=== PATIENT | male | born 1990 | race American Indian/Alaskan Native ===

== ENCOUNTER 2019-09-01 21:18 | Emergency (ER) | payer BC ==
[2019-09-01 21:25] VITALS: BP 145/93
[2019-09-01] MEDS ORDERED: IBUPROFEN 800 MG TAB PO ONE (22:38)
[2019-09-01] MEDS ORDERED: LIDOCAINE-MPF (1%) 10 MG/1 ML VIAL 5 ML INFILTRATI ONE (22:38)
[2019-09-01] MEDS ORDERED: DIPHtheria,PERTUSSIS(ACELL),TETANUS VACCINE/PF 0.5 ML VIAL IM ONE (22:39)
--- NOTE | 2019-09-01 23:29 | Emergency Department Report ---
- General Chief Complaint: Wound/Laceration Stated Complaint: LACERATION TO RIGHT MIDDLE FINGER Source: patient Mode of arrival: Ambulatory Limitations: No Limitations - History of Present Illness Initial Comments: Patient is a 29-year-old white male with no past medical history presents to the ED with complaint of acute onset persistent painful right middle finger bleeding laceration on the palmar side after he accidentally got cut by a piece of a toy that he was trying to fix for his child about 1 hour ago. Patient states that he is not up-to-date with his tetanus vaccinations. Patient states that the bleeding is well controlled but the pain is worsened. Patient however admits that he is still able to perform active range of motion of the right middle finger. Patient denies numbness and tingling or weakness of right hand or right middle finger, nausea, vomiting, fall, dizziness or syncope. -: Sudden, hour(s) (1) Location: other (right middle finger) Extremity Location: Right: Hand (right middle finger laceration) Place: home Patient Tetanus UTD: No (given during this visit) Context: accidental Associated Symptoms: pain. denies: loss of feeling/numbness, suspect foreign body present, unable to move injured part, weakness followed by dizziness, nausea/vomiting, fever - Related Data Previous Rx's Medication Instructions Recorded Last Taken Type Ibuprofen [Motrin] 600 mg PO Q8H PRN #20 tablet 09/01/19 Unknown Rx cephALEXin [Keflex] 500 mg PO Q8HR #30 cap 09/01/19 Unknown Rx ED Review of Systems ROS: Stated complaint: LACERATION TO RIGHT MIDDLE FINGER Other details as noted in HPI Constitutional: denies: chills, fever Eyes: denies: eye pain, eye discharge, vision change ENT: denies: ear pain, throat pain Respiratory: denies: cough, shortness of breath, wheezing Cardiovascular: denies: chest pain, palpitations Endocrine: no symptoms reported Gastrointestinal: denies: abdominal pain, nausea, diarrhea Genitourinary: denies: urgency, dysuria Musculoskeletal: arthralgia (Painful bleeding right middle finger laceration on the palmar side). denies: back pain, joint swelling Skin: other (Bleeding painful right middle finger laceration on the palmar side). denies: rash, lesions Neurological: denies: headache, weakness, paresthesias Psychiatric: denies: anxiety, depression Hematological/Lymphatic: denies: easy bleeding, easy bruising ED Past Medical Hx - Past Medical History Previous Medical History?: Yes Additional medical history: "resp issue" - Surgical History Past Surgical History?: Yes Additional Surgical History: tonsil. wisdom teeth - Social History Smoking Status: Never Smoker Substance Use Type: Alcohol - Medications Home Medications: Home Medications Medication Instructions Recorded Confirmed Last Taken Type Ibuprofen [Motrin] 600 mg PO Q8H PRN #20 tablet 09/01/19 Unknown Rx cephALEXin [Keflex] 500 mg PO Q8HR #30 cap 09/01/19 Unknown Rx ED Physical Exam - General Limitations: No Limitations General appearance: alert, in no apparent distress - Head Head exam: Present: atraumatic, normocephalic, normal inspection - Eye Eye exam: Present: normal appearance, PERRL, EOMI Pupils: Present: normal accommodation - ENT ENT exam: Present: normal exam, normal orophraynx, mucous membranes moist, TM's normal bilaterally, normal external ear exam - Neck Neck exam: Present: normal inspection, full ROM. Absent: tenderness - Respiratory Respiratory exam: Present: normal lung sounds bilaterally. Absent: respiratory distress, wheezes, rales, rhonchi, chest wall tenderness, accessory muscle use, decreased breath sounds, prolonged expiratory - Cardiovascular Cardiovascular Exam: Present: regular rate, normal rhythm, normal heart sounds. Absent: systolic murmur, diastolic murmur, rubs, gallop - GI/Abdominal GI/Abdominal exam: Present: soft, normal bowel sounds. Absent: tenderness, guarding, rebound, hyperactive bowel sounds, hypoactive bowel sounds, organomegaly - Extremities Exam Extremities exam: Present: normal inspection, full ROM, tenderness (Palpable right middle finger tenderness due to a bleeding 3 cm laceration on proximal right middle finger on palmar side), normal capillary refill. Absent: pedal edema, joint swelling - Back Exam Back exam: Present: normal inspection, full ROM. Absent: tenderness, CVA tenderness (L), muscle spasm, paraspinal tenderness - Neurological Exam Neurological exam: Present: alert, oriented X3, CN II-XII intact, normal gait, reflexes normal - Psychiatric Psychiatric exam: Present: normal affect, normal mood - Skin Skin exam: Present: warm, dry, intact, normal color. Absent: rash ED Course Vital Signs 09/01/19 21:23 Temperature 98.0 F Pulse Rate 66 Respiratory 18 Rate Blood Pressure 145/93 O2 Sat by Pulse 96 Oximetry - Laceration /Wound Repair Right Proximal Palm Finger Wound Location: upper extremity (Proximal right middle finger on palmar side) Wound Length (cm): 3 Wound's Depth, Shape: superficial Wound Explored: contaminated Irrigated w/ Saline (ccs): 50 Betadine Prep?: Yes Anesthesia: 1% Lidocaine Volume Anesthetic (ccs): 5 Wound Debrided: extensive Wound Repaired With: sutures Suture Size/Type: 4:0, proline Number of Sutures: 6 Layer Closure?: No Sterile Dressing Applied?: No Progress: Patient tolerated procedure well. Patient right middle finger wound was cleaned and dressed appropriately after suturing. Patient was discharged home on pain medications and prophylactic antibiotics and advised to follow-up with his primary care physician in 5 to 7 days for reevaluation. Patient was also advised return to the ED immediately if symptoms get worse, otherwise return to the ED or to his primary care physician in 12-14 days for suture removal. ED Medical Decision Making - Medical Decision Making This is a 29-year-old white male with no past medical history presents to the ED with complaint of acute onset persistent painful right middle finger bleeding laceration on the palmar side after he accidentally got cut by a piece of a toy that he was trying to fix for his child about 1 hour ago. Patient states that he is not up-to-date with his tetanus vaccinations. Patient states that the bleeding is well controlled but the pain is worsened. Patient however admits that he is still able to perform active range of motion of the right middle finger. In the ED, patient is alert and oriented x3 and is not in distress but appears to be in pain. Patient was treated for pain and also given booster tetanus vaccination. The right middle finger laceration was cleaned and and sutured per protocol and the patient tolerated the procedure well. The wound was then cleaned and dressed with 2 x 2 gauzes and Kerlix and the patient was discharged home on pain medications and prophylactic antibiotics. Patient was advised to return to the ED immediately if symptoms get worse. Patient was otherwise advised to follow-up with his primary care physician in 5 to 7 days for reevaluation or return to the ED or to his primary care physician in 12 to 14 days for suture removal - Differential Diagnosis Finger laceration; tendon injury; hand puncture wound Critical care attestation.: If time is entered above; I have spent that time in minutes in the direct care of this critically ill patient, excluding procedure time. ED Disposition Clinical Impression: Laceration of right middle finger w/o foreign body w/o damage to nail Qualifiers: Encounter type: initial encounter Qualified Code(s): S61.212A - Laceration without foreign body of right middle finger without damage to nail, initial encounter Disposition: TO HOME OR SELFCARE Is pt being admited?: No Does the pt Need Aspirin: No Condition: Stable Instructions: Suture Care (ED), Laceration (ED) Additional Instructions: Take medication with food, drink plenty of fluids and follow-up with your primary care physician in 7 to 10 days for reevaluation. Return to the ED immediately if symptoms get worse. Otherwise return to the ED in 12 to 14 days for suture removal. Prescriptions: cephALEXin [Keflex] 500 mg PO Q8HR #30 cap Ibuprofen [Motrin] 600 mg PO Q8H PRN #20 tablet PRN Reason: Pain Referrals: [facility] [Provider Group] - 7-10 days Time of Disposition: 23:28 Print Language: CHINESE
== END 2019-09-02 00:26 | disposition home or self-care (01) ==
LOC: ED 21:18
DX: S61.212A Laceration without foreign body of right middle finger without damage to nail, initial encounter (principal); Z90.79 Acquired absence of other genital organ(s); Z88.6 Allergy status to analgesic agent; X58.XXXA Exposure to other specified factors, initial encounter; Y93.89 Activity, other specified; Y92.89 Other specified places as the place of occurrence of the external cause; Y99.8 Other external cause status
CPT/HCPCS: 90471; 90715; 99282